=== PATIENT | female | born 1965 | race Caucasian/White ===

== ENCOUNTER 2018-09-19 13:40 | Day surgery (SDC) | payer OTHER, SELFPAY ==
--- NOTE | 2018-09-19 | PATH_ITS ---
[facility] Accession Number: [id number] . 01 Material submitted: . PART A: small bowel - SMALL BIOPSIES PART B: gastrointestinal site - GASTRIC BX PART C: colon - RANDOM COLON BIOPSIES . 01 Clinical history: . A: BIOPSIES FOR CELIAC B: BX FOR H.P. . 02 Diagnosis: A. Biopsy, Small Bowel: Fragments of normal appearing duodenal mucosa. Normal delicate mucosal villi present. Negative for significant inflammation, dysplasia, and malignancy. . B. Gastric Biopsy: Mild chronic gastritis involving fundic mucosa. Negative for evidence of Helicobacter on H/E stain. Negative for intestinal metaplasia. Negative for dysplasia and malignancy. . C. Random Colon Biopsies: Changes consistent with lymphocytic colitis. [facility]/09/21/2018 . 02 Electronically signed: . Xiang Connolly MD, Pathologist NPI- [id number] . 01 Gross description: . Part A: SMALL BIOPSIES: Received in formalin are 2 fragment(s) of laird, soft tissue measuring 0.3 x 0.3 x 0.3 cm to 0.2 x 0.2 x 0.2 cm submitted entirely in 1 cassette(s) Part B: GASTRIC BX: Received in formalin is 1 fragment(s) of laird, soft tissue measuring 0.4 x 0.3 x 0.2 cm submitted entirely in 1 cassette(s) Part C: RANDOM COLON BIOPSIES: Received in formalin are multiple fragment(s) of laird, soft tissue measuring 0.7 x 0.3 x 0.1 cm in aggregate submitted entirely in 1 cassette(s) /CKI /CKI . 02 Pathologist provided ICD-10: K52.89 . 02 CPT . 201800, [id number], [id number] Performed at: 01 [facility] [address] [id number] MD Justen Barba MD Phone: [phone] Performed at: 02 [facility] [address] [place] [id number] MD Pita Moon MD Phone: [phone]
--- NOTE | 2018-09-19 13:58 | PM.HP.1 ---
History of Present Illness Date Patient Seen: 09/19/18 Chief complaint: [id number] Narrative: Rectal bleeding diarrhea and dyspepsia Patient History Medical History (Updated 09/18/18 @ 15:58 by Isaura Johnson RN) Blood in stool (Acute) Chronic diarrhea (Acute) Diverticula of colon (Acute) Dyspepsia (Acute) Epigastric pain (Acute) Rectocele (Acute) Tortuous colon (Acute) Weight loss (Acute) Surgical History (Updated 09/18/18 @ 15:54 by Isaura Johnson RN) History of cholecystectomy (Acute) History of colonoscopy (Acute) History of esophagogastroduodenoscopy (EGD) (Acute) History of tonsillectomy (Acute) Meds Home Medications Medication Instructions Recorded Confirmed Type Pepto-Bismol 09/18/18 History colestipol 1 g PO BID 09/18/18 09/18/18 History dexlansoprazole [Dexilant] 30 mg PO BID 09/18/18 09/18/18 History dexlansoprazole [Dexilant] 60 mg PO BID 09/18/18 09/18/18 History esomeprazole magnesium [Nexium] 40 mg PO DAILY 09/18/18 09/18/18 History rabeprazole 20 mg PO BID 09/18/18 09/18/18 History sucralfate 1 g PO QID 09/18/18 09/18/18 History Allergies Allergy/AdvReac Type Severity Reaction Status Date / Time Sulfa (Sulfonamide Allergy Mild RASH, Unverified 05/17/17 12:31 Antibiotics) BLOOD IN [SULFA (SULFONAMIDE URINE ANTIBIOTICS)] Exam Narrative Exam Narrative: Oropharynx free of lesions Chest clear to auscultation percussion Cardiac exam reveals no S3 or murmur Assessment & Plan Assessment & Plan narrative: Diarrhea dyspepsia and rectal bleeding. She left both EGD and colonoscopy performed today to rule out underlying colitis or peptic disease. Risks, benefits, alternatives have been explained. Further recommendations to follow the results of those studies.
--- NOTE | 2018-09-19 13:59 | PM.OP.ENDO ---
Operative Date/Time/Diagnoses Date of procedure: 09/19/18 Pre-op diagnosis: See indication and findings Procedure & Clinicians Study performed: EGD and colonoscopy Same procedure as scheduled: Yes Indications: Rectal bleeding diarrhea and dyspepsia Surgeon: Kristine Barrera Procedure Notes Procedure in detail: After informed consent was obtained the patient was placed in the left lateral decubitus position. The video upper scope was placed into the oropharynx and with the patient's health swallowed into the esophagus. The esophagus, stomach, and duodenum were carefully examined. On withdrawal, retroflexed view the GE junction was performed. The scope was removed. The patient tolerated the procedure well. The patient was then turned and the colonoscope substituted. This placed the rectum and slowly advanced the cecum. On slow withdrawal mucosa was carefully examined. Preparation was good. The scope was removed. The patient tolerated the procedure well. Blood loss none Complications none Sedation - MAC Findings EGD 1. Normal esophagus 2. Scattered patchy gastric erythema biopsies taken to rule out Helicobacter 3. Normal duodenal bulb and sweep biopsies taken to rule out celiac Colonoscopy 1. Normal terminal ileum 2. Otherwise negative colonoscopy. Random biopsies taken to rule out microscopic colitis 3. Mild internal hemorrhoids possibly the source of bleeding Patient will be contacted regarding biopsies. She should follow up in the office with Dr. Wright
[2018-09-19 14:26] VITALS: BMI 35.0
[2018-09-19 14:35] VITALS: PULSE 68; RESP 16; TEMP 36.9; O2SAT 100
[2018-09-19] MEDS: SODIUM CHLORIDE 0.9% 1,000 ML 42 ML IV (14:57)
[2018-09-19 17:11] VITALS: BP 117/73; PULSE 74; RESP 12; TEMP 36.3; O2SAT 94
[2018-09-19 17:15] VITALS: BP 121/79; PULSE 74; RESP 12; O2SAT 95
[2018-09-19 17:20] VITALS: BP 123/69; PULSE 76; RESP 14; O2SAT 96
[2018-09-19 17:29] VITALS: BP 105/63; PULSE 70; RESP 16; TEMP 36.1; O2SAT 98
[2018-09-19 17:40] VITALS: BP 117/81; PULSE 69; RESP 18; TEMP 36.2; O2SAT 98
== END 2018-09-19 17:43 | disposition home or self-care (01) ==
PROVIDERS: Visit Provider Internal Medicine Gastroenterology
PROC: 0DJ08ZZ Inspection of Upper Intestinal Tract, Via Natural or Artificial Opening Endoscopic (ICD-10-PCS; CPT 43235; principal; 2018-09-19 15:30)
PROC: 0DJD8ZZ Inspection of Lower Intestinal Tract, Via Natural or Artificial Opening Endoscopic (ICD-10-PCS; CPT 45378; 2018-09-19 15:30)
DX: R10.13 Epigastric pain (principal); K52.832 Lymphocytic colitis; K64.8 Other hemorrhoids; K29.50 Unspecified chronic gastritis without bleeding; K62.5 Hemorrhage of anus and rectum; R19.7 Diarrhea, unspecified; R63.4 Abnormal weight loss
CPT/HCPCS: 45380; 43239; 88305; J2250; J2704; J3010